=== PATIENT | female | born 1990 | race Caucasian/White ===

== ENCOUNTER 2017-08-10 09:54 | Day surgery (SDC) | payer BC ==
[~2017-08-10 09:54] MED LIST: Bupivacaine 0.5% 10 ML SDV ONE; Clindamycin Phosphate in D5W 300 MG in Premix Bag 1 BAG IV ONE; Gelatin Sponge,Absorbable 12-7 mm Sponge TOP ONE; Lactated Ringers 1,000 ML IV SCH; Lidocaine 2% 5 ML SDV ONE; Midazolam 1 MG/ML 2 ML SDV ONE; Propofol 200 MG/20 ML SDV ONE; Rocuronium 10 MG/ML 10 ML Syringe ONE; Sodium Chloride 0.9% 10 ML Syringe FLUSH PRN; Sodium Chloride 0.9% 2.5 ML Syringe FLUSH PRN; Succinylcholine/Normal Saline 200 MG/10 ML Syringe ONE; fentaNYL 100 MCG/2 ML SDV ONE
[2017-08-10] MEDS ORDERED: fentaNYL 100 MCG/2 ML SDV IVPUSH PRN (10:08)
--- NOTE | 2017-08-10 10:53 | PCM.PREANE ---
Preanesthetic Assessment - Anesthesia/Transfusion/Family Hx Anesthesia History: No Prior Anesthesia Family History of Anesthesia Reaction: No Transfusion History: No Prior Transfusion(s) Intubation History: Unknown - Review of Systems General: No Symptoms Pulmonary: No Symptoms Cardiovascular: No Symptoms Gastrointestinal: No Symptoms Neurological: No Symptoms Other: Reports: None - Physical Assessment Height: 1.6 m Weight: 80.739 kg ASA Class: 2 Mental Status: Alert & Oriented x3 Airway Class: Mallampati = 2 Dentition: Reports: Normal Dentition (retainer at the bottom) Thyro-Mental Finger Breadths: 3 Mouth Opening Finger Breadths: 3 ROM/Head Extension: Full Lungs: Clear to Auscultation, Normal Respiratory Effort Cardiovascular: Regular Rate, Regular Rhythm - Allergies Allergies/Adverse Reactions: Allergies Allergy/AdvReac Type Severity Reaction Status Date / Time amoxicillin trihydrate Allergy Vomiting Verified 08/05/17 10:46 [From Augmentin] potassium clavulanate Allergy Vomiting Verified 08/05/17 10:46 [From Augmentin] - Blood Blood Available: No - Anesthesia Plan Pre-Op Medication Ordered: None - Acknowledgements Anesthesia Type Planned: General Anesthesia Pt an Appropriate Candidate for the Planned Anesthesia: Yes Alternatives and Risks of Anesthesia Discussed w Pt/Guardian: Yes Pt/Guardian Understands and Agrees with Anesthesia Plan: Yes PreAnesthesia Questionnaire - Past Health History Medical/Surgical History: Denies Medical/Surgical History HEENT History: Reports: Other (See Below) Other HEENT History: has lower permanent retainer Respiratory History: Reports: Other (See Below) (h/o asthma as child) Endocrine/Metabolic History: Reports: Obesity/BMI 30+ Dermatologic History: Reports: Other (See Below) (non-healing pilonidal cyst) - Past Surgical History HEENT Surgical History: Reports: Myringotomy w Tube(s) (x2), Oral Surgery - SUBSTANCE USE Smoking Status *Q: Current Every Day Smoker (< 1/2 ppd) Tobacco Use Within Last Twelve Months: Cigarettes Days Per Week of Alcohol Use: 0 Recreational Drug Use History: No - HOME MEDS Home Medications: Home Meds . [No Known Home Meds] 08/05/17 [History] - CURRENT (IN HOUSE) MEDS Current Meds: Current Medications Fentanyl (Sublimaze) 50 - 100 mcg IVPUSH Q5M PRN PRN Reason: Pain Stop: 08/10/17 14:08 Lactated Ringer's (Ringers, Lactated) 1,000 mls @ 125 mls/hr IV ASDIRECTED LIU Sodium Chloride (Saline Flush) 10 ml FLUSH ASDIRECTED PRN PRN Reason: Keep Vein Open Sodium Chloride (Saline Flush) 2.5 ml FLUSH ASDIRECTED PRN PRN Reason: Keep Vein Open Discontinued Medications Bupivacaine HCl (Sensorcaine-Mpf 0.5%) Confirm Administered Dose 10 ml .ROUTE .STK-MED ONE Stop: 08/10/17 07:31 Fentanyl (Sublimaze) Confirm Administered Dose 100 mcg .ROUTE .STK-MED ONE Stop: 08/10/17 08:25 Gelatin (Gelfoam 12-7 Mm) Confirm Administered Dose 1 each TOP .STK-MED ONE Stop: 08/10/17 07:32 Clindamycin Phosphate 300 mg/ (Premix) 50 mls @ 100 mls/hr IV ONETIME ONE Stop: 08/08/17 14:39 Lidocaine (Xylocaine-Mpf 2%) Confirm Administered Dose 5 ml .ROUTE .STK-MED ONE Stop: 08/10/17 08:25 Midazolam HCl (Versed 1 Mg/Ml) Confirm Administered Dose 2 mg .ROUTE .STK-MED ONE Stop: 08/10/17 08:25 Propofol (Diprivan 20 Ml) Confirm Administered Dose 200 mg .ROUTE .STK-MED ONE Stop: 08/10/17 08:25 Rocuronium [place] (Zemuron) Confirm Administered Dose 100 mg .ROUTE .STK-MED ONE Stop: 08/10/17 08:25 Succinylcholine Chloride (Succinylcholine In Ns Pf) Confirm Administered Dose 200 mg .ROUTE .STK-MED ONE Stop: 08/10/17 08:25
[2017-08-10] MEDS ORDERED: HYDROmorphone 2 MG/ML Syringe ONE (11:01)
[2017-08-10] MEDS ORDERED: Clindamycin Phosphate in D5W 300 MG in Premix Bag 1 BAG IV ONE ×2 (11:15)
[2017-08-10] MEDS ORDERED: Ondansetron 4 MG/2 ML SDV ONE (12:04)
[2017-08-10] MEDS ORDERED: Ketorolac 30 MG/ML SDV ONE (12:04)
[2017-08-10] MEDS ORDERED: Dexamethasone 4 MG/ML 5 ML MDV ONE (12:04)
[2017-08-10] MEDS ORDERED: Bupivacaine 0.5% 10 ML SDV ONE (12:11)
--- NOTE | 2017-08-10 12:39 | PCM.OPNOTE ---
- General Post-Op/Procedure Note Date of Surgery/Procedure: 08/10/17 Operative Procedure(s): Pilonidal Cyst Excision Findings: Pilonidal Cyst Pre Op Diagnosis: Pilonidal Cyst Post-Op Diagnosis: Pilonidal Cyst Anesthesia Technique: General ET Tube Primary Surgeon: Karlie Bello Search Analyst: Luis Manuel Moon (PGY 2) Fluid Replacement, Intraop: 1,000 (Crystaloid) EBL in mLs: 10 Condition: Good Free Text/Narrative:: Wound packed with 2 x 4x4 wet-dry gauze, defect measured 2x2x4 cm
[2017-08-10] MEDS ORDERED: Acetaminophen/oxyCODONE 325-5 MG Tab PO PRN (12:45)
--- NOTE | 2017-08-10 13:04 | PCM.POSTAN ---
POST ANESTHESIA ASSESSMENT - MENTAL STATUS Mental Status: Alert, Oriented - RESPIRATORY Respiratory Status: Respiratory Rate WNL, Airway Patent, O2 Saturation Stable - CARDIOVASCULAR CV Status: Pulse Rate WNL, Blood Pressure Stable - GASTROINTESTINAL GI Status: No Symptoms - PAIN Pain Score: 1 - POST OP HYDRATION Hydration Status: Adequate & Stable - OBSERVATIONS Free Text/Narrative:: no anesthesia problems
--- NOTE | 2017-08-10 13:41 | OR ---
SURGEON: EREN DOMINGO MD DATE OF PROCEDURE: 08/10/2017 PREOPERATIVE DIAGNOSIS: Pilonidal cyst. POSTOPERATIVE DIAGNOSIS: Pilonidal cyst. PROCEDURE PERFORMED: Pilonidal cyst excision. AMPOULE WASHING MACHINE OPERATOR: Dr. Luis Manuel Moon. ANESTHESIA: General endotracheal anesthesia. FLUIDS: 1000 mL of crystalloid. ESTIMATED BLOOD LOSS: 10 mL. FINDINGS: Chronically infected pilonidal cyst tract with several midline pits. 4 x 2 x 2 cm elliptical excision of the keon cleft. COMPLICATIONS: None. INDICATIONS: The patient is a 27-year-old female, who came to see me several months ago with an infected pilonidal cyst. This was incised and drained in the office. It healed and the patient formed a fistulous tract. She continued to have on and off infections of the pilonidal cyst. She is now doing well and has not had an infection for some time and would like to have the cyst excised. We discussed the pilonidal excision procedure and expected perioperative course and includes long-term dressing changes. The patient and I discussed the risks, including bleeding, infection, or damage to surrounding structures. The patient verbalized understanding and wishes to proceed. PROCEDURE IN DETAIL: The patient was brought into the operating room and kept in the OR cart. A time- out was completed verifying the patient's name, age, date of , allergies, and procedure to be performed. General endotracheal anesthesia was induced. The patient was then placed in a prone position on the operating room table. All appropriate bony prominences were padded. The keon cleft and surrounding buttocks were prepped and draped in the usual standard fashion. A fistula probe was used to probe the sinus tract on the right lateral butt cheek up to the midline pit. An elliptical area around this was anesthetized with 0.5% Marcaine plain. A 15 blade was used to make an elliptical excision around the keon cleft containing pits and the cyst tract. Cautery was used to dissect down to the level of the subcutaneous fat. Given that this was very superficial, I did not dissect down to the level of the presacral fascia. The ellipse of tissue was removed and placed on the back table. A fistula probe was placed again through the fistulous tract and it appeared that I had completely excised both the midline pits and the fistula. Cautery was used to obtain hemostasis. The wound was measured and found to be 4 cm x 2 cm x 2 cm. Given its small size, I did not marsupialize the edges. The wound was packed with saline soaked gauze with dry gauze placed on top. The gauze was secured in place with tape. Mesh panties were placed. The patient tolerated the procedure well, was placed back on the cart in a supine position and extubated. She was taken to the PACU in stable condition. SHAWN GARRIDO /[id number]
[2017-08-10 15:14] VITALS: BP 122/78
== END 2017-08-10 14:30 | disposition home or self-care (01) ==
LOC: MW.SDS 09:54
PROVIDERS: ATTEND Surgery
DX: L05.91 Pilonidal cyst without abscess (principal); F17.210 Nicotine dependence, cigarettes, uncomplicated; E66.9 Obesity, unspecified; Z68.31 Body mass index [BMI] 31.0-31.9, adult; Z83.2 Family history of diseases of the blood and blood-forming organs and certain disorders involving the immune mechanism; Z88.0 Allergy status to penicillin; Z98.890 Other specified postprocedural states; Z88.1 Allergy status to other antibiotic agents
CPT/HCPCS: 11771; 81025; A9270; J1100; J1170; J1885; J2250; J2405; J3010; J7120; 00300; 88304; J2704

== ENCOUNTER 2023-07-27 13:17 | Day surgery (SDC) | payer BC ==
[~2023-07-27 13:17] MED LIST changes: +Albuterol 0.083% 2.5 MG/3 ML Neb Soln NEB PRN; -Bupivacaine 0.5% 10 ML SDV ONE; -Clindamycin Phosphate in D5W 300 MG in Premix Bag 1 BAG IV ONE; -Gelatin Sponge,Absorbable 12-7 mm Sponge TOP ONE; +HYDROmorphone 1 MG/ML Syringe IVPUSH PRN; -Lactated Ringers 1,000 ML IV SCH; -Lidocaine 2% 5 ML SDV ONE; +Metoclopramide 10 MG/2 ML SDV IVPUSH PRN; -Midazolam 1 MG/ML 2 ML SDV ONE; +Morphine 2 MG/ML SYRINGE IVPUSH PRN; +Naloxone 0.4 MG/ML SDV IVPUSH PRN; +Ondansetron 4 MG/2 ML SDV IVPUSH PRN; -Propofol 200 MG/20 ML SDV ONE; -Rocuronium 10 MG/ML 10 ML Syringe ONE; -Sodium Chloride 0.9% 10 ML Syringe FLUSH PRN; -Sodium Chloride 0.9% 2.5 ML Syringe FLUSH PRN; -Succinylcholine/Normal Saline 200 MG/10 ML Syringe ONE; +ceFAZolin 2 GM in Sodium Chloride 0.9% 50 ML IV ONE; +droPERidol 5 MG/2 ML SDV IVPUSH PRN; -fentaNYL 100 MCG/2 ML SDV ONE; +fentaNYL 50 MCG/ML SDV IVPUSH PRN; +propofoL 50 ML ONE
[2023-07-27] MEDS: Lactated Ringers 1,000 ML IV SCH ×2 (13:36→14:10)
[2023-07-27] MEDS ORDERED: Midazolam 1 MG/ML 2 ML SDV ONE (13:41)
[2023-07-27] MEDS ORDERED: Glycopyrrolate 0.2 MG/ML SDV ONE ×2 (14:21→14:52)
[2023-07-27] MEDS ORDERED: Ropivacaine 0.5% 5 MG/ML 30 ML SDV ONE (14:21)
[2023-07-27] MEDS ORDERED: Dexmedetomidine 200 MCG/2 ML SDV ONE (14:32)
[2023-07-27] MEDS ORDERED: ceFAZolin 2 GM Vial ONE (14:33)
[2023-07-27] MEDS ORDERED: Dexamethasone 4 MG/ML 5 ML MDV ONE (14:51)
[2023-07-27] MEDS ORDERED: Metoclopramide 10 MG/2 ML SDV ONE (14:51)
[2023-07-27] MEDS ORDERED: Ketorolac 30 MG/ML SDV ONE (14:58)
[2023-07-27] MEDS ORDERED: Lidocaine 2% 5 ML SDV ONE (14:59)
[2023-07-27 16:54] VITALS: BP 116/82; PULSE 96
== END 2023-07-27 16:05 | disposition home or self-care (01) ==
LOC: MW.SDS 13:17
PROVIDERS: ATTEND Orthopaedic Surgery
DX: M70.22 Olecranon bursitis, left elbow (principal); F17.200 Nicotine dependence, unspecified, uncomplicated; K59.09 Other constipation; E66.9 Obesity, unspecified; F17.210 Nicotine dependence, cigarettes, uncomplicated; Z88.0 Allergy status to penicillin; Z88.8 Allergy status to other drugs, medicaments and biological substances; Z68.35 Body mass index [BMI] 35.0-35.9, adult
CPT/HCPCS: 24105; 64415; 81025; J0690; J1100; J1885; J2250; J2704; J2765; J2795; J3490; J7120